=== PATIENT | male | born 1965 | race Caucasian/White ===

== ENCOUNTER 2017-04-23 19:58 | Inpatient (IN) | payer OTHER ==
[~2017-04-23] VITALS: Ht 172.7 cm; Wt 85.0 kg
[2017-04-23 20:12] VITALS: O2SAT 96; O2SAT 98
[2017-04-23 20:14] VITALS: BP 140/77; RESP 20
[2017-04-23] MEDS ORDERED: ceFAZolin 2 GM PREMIX 50 ML ONE (20:14)
[2017-04-23] MEDS ORDERED: ONDANSETRON HCL 4 MG/2 ML VIAL ONE (20:14)
[2017-04-23] MEDS ORDERED: DIPHTH/TETANUS/ACEL PERTUSSIS (BOOSTER) 0.5 ML VIAL/PFS IM ONE (20:14)
[2017-04-23] MEDS ORDERED: MORPHINE SULFATE 8 MG/ML INJ ONE (20:14)
[2017-04-23] MEDS ORDERED: HYDROmorphone HCL PF 2 MG/ML VIAL ONE (20:22)
[2017-04-23 20:32] LABS: I-STAT POTASSIUM 3.4 MMOL/L (3.5-4.9)
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
[2017-04-23 20:35] LABS: AUTOMATED NEUTROPHIL # 9.7 TH/MM3 (1.8-7.7); BASOPHIL # 0.1 TH/MM3 (0-0.2); BASOPHIL % 0.6 % (0.0-2.0); EOSINOPHIL # 0.2 TH/MM3 (0-0.4); EOSINOPHIL % 1.2 % (0.0-4.0); HEMATOCRIT 47.4 % (39.0-51.0); HEMO FLAGS DIFF FINAL; LYMPH % 24.4 % (9.0-44.0); LYMPHOCYTE # 3.7 TH/MM3 (1.0-4.8); MEAN CELL VOLUME 90.6 FL (80.0-100.0); MEAN CORPUSCULAR HGB CONC 33.1 % (32.0-36.0); MONO % 10.3 % (0.0-8.0); NEUT % 63.5 % (16.0-70.0); PLATELET COUNT 221 TH/MM3 (150-450); RED BLOOD COUNT 5.24 MIL/MM3 (4.50-5.90); RED CELL DISTRIBUTION WIDTH 13.9 % (11.6-17.2); WHITE BLOOD COUNT 15.2 TH/MM3 (4.0-11.0)
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
[2017-04-23] MEDS ORDERED: IOHEXOL 350 MG/ML 10 ML VIAL (for RAD DIAG) IVCONTRAST ONE (20:36)
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
[2017-04-23 20:44] LABS: APTT (PATIENT) 22.9 SEC (24.3-30.1); PROTHROMBIN TIME - PATIENT 11.2 SEC (9.8-11.6)
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
[2017-04-23 20:50] VITALS: BP 144/84; PULSE 112; RESP 18; O2SAT 96
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
[2017-04-23 22:15] VITALS: BP 145/81; PULSE 100; RESP 18; O2SAT 96
[2017-04-23] MEDS ORDERED: HYDROmorphone HCL PF 2 MG/ML VIAL IV PUSH ONE (22:45)
[2017-04-23 23:27] VITALS: BP 115/60
[2017-04-24] VITALS (7 sets, daily range): BP systolic 118–154; BP diastolic 72–85; PULSE 74–100; RESP 16–18; TEMP 97.7–99.7; O2SAT 92–97
[2017-04-24] MEDS ORDERED: ONDANSETRON HCL 4 MG/2 ML VIAL IV PUSH PRN (00:45)
[2017-04-24] MEDS: MORPHINE SULFATE 4 MG/ML INJ IV PRN ×5 (00:48→11:28)
[2017-04-24] MEDS: SODIUM CHLOR 0.9% 1000 ML INJ 1,000 ML IV SCH ×3 (01:00→20:26)
[2017-04-24] MEDS ORDERED: LACTATED RINGER'S 1000 ML IV PRN (05:00)
[2017-04-24] MEDS ORDERED: SODIUM CHLORID 0.9% 500 ML IV PRN (05:00)
[2017-04-24] MEDS ORDERED: POVIDONE IODINE 5% (ANTISEPSIS KIT) 4 APPLICATIONS EACH NARE PRN (05:00)
[2017-04-24] MEDS ORDERED: CHLORHEXIDINE GLUCONATE 2 % 1 PACK (2 CLOTHS) TOPICAL PRN (05:00)
[2017-04-24] MEDS ORDERED: INSULIN HUMAN REGULAR 1,000 UNITS/10 ML VIAL SQ PRN (05:00)
[2017-04-24] MEDS ORDERED: METOPROLOL TARTRATE 25 MG TAB PO PRN (05:00)
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
[2017-04-24] MEDS: DOCUSATE SODIUM 50 MG/SENNA 8.6 MG TAB PO SCH ×2 (09:00→20:32)
[2017-04-24] MEDS: FAMOTIDINE 20 MG TAB PO SCH ×2 (09:00→20:32)
[2017-04-24] MEDS ORDERED: ONDANSETRON HCL 4 MG/2 ML VIAL IV ONE (10:12)
[2017-04-24] MEDS ORDERED: MIDAZOLAM HCL 2 MG/2 ML VIAL IV ONE (10:12)
[2017-04-24] MEDS ORDERED: PROPOFOL 200 MG/20 ML AMP IV ONE (10:12)
[2017-04-24] MEDS ORDERED: NEOSTIGMINE 3 MG/3 ML SYR IV ONE (10:12)
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
[2017-04-24] MEDS ORDERED: DEXAMETHASONE SOD PHOS 4 MG/ML VIAL ONE (11:18)
[2017-04-24] MEDS ORDERED: FAMOTIDINE 20 MG/2 ML VIAL ONE (11:18)
[2017-04-24] MEDS ORDERED: VANCOMYCIN HCL 1000 MG VIAL ONE (11:38)
[2017-04-24] MEDS ORDERED: SODIUM CHLOR 0.9% 250 ML INJ 250 ML ONE (11:39)
[2017-04-24] MEDS ORDERED: GENTAMICIN SULFATE 80 MG/2 ML VIAL ONE (11:39)
[2017-04-24] MEDS ORDERED: ceFAZolin 2 GM PREMIX 50 ML ONE (11:39)
[2017-04-24] MEDS: BACITRACIN TOP OINT 15 GM TUBE TOPICAL SCH ×2 (11:45→20:32)
[2017-04-24] MEDS ORDERED: XARE10TA PO (11:54)
[2017-04-24] MEDS ORDERED: CALCTAB19 PO (11:54)
[2017-04-24] MEDS ORDERED: WALKER/ADULT/FO1 MIS (11:54)
[2017-04-24] MEDS ORDERED: HYDR-3583 PO (11:54)
[2017-04-24] MEDS ORDERED: diphenhydrAMINE HCL 25 MG CAP PO PRN (13:30)
[2017-04-24] MEDS ORDERED: MORPHINE SULFATE 4 MG/ML INJ IV PUSH PRN (13:30)
--- NOTE | 2017-04-24 13:36 | PD.OP ---
cc: Hai Skelton MD Operative Report Date of Surgery: Apr 24, 2017 Preoperative Diagnosis: Displaced right tibia shaft fracture nondisplaced second, third, and fourth metatarsal fractures Postoperative Diagnosis: Procedure: Reduction and intramedullary nail fixation right tibia Anesthesia: Gen. Surgeon: Hai Skelton Aquatic Scientist(s): YUNG Ley PA-C The surgical procedure was assisted by my physician health education assistant. My P.A. presence was necessary throughout this case for the manipulation and positioning of the surgical extremity. My P.A. was assisting me throughout the duration of this procedure. The skill set of a physician health education assistant was medically necessary to complete this procedure. During the surgical case the regional vice president surgical sales was working at the back table and the physician health education assistant was directly assisting me. Operation and Findings: Implants: synthes [10]mm x [345]mm tibial nail Plan of activity: Nonweightbearing Patient was seen and examined preoperatively. An informed consent was obtained from patient after detailed discussion of risk and benefits. Risks of surgery include bleeding, infection, painful hardware, nonunion, malunion, leg length discrepancy, need for hardware removal, and medical complications associated with anesthesia including blood clots, stroke, heart attack, and were discussed. Operative site was marked. Patient was brought to the operating room placed on or table. Patient received IV antibiotics and was given IV sedation GETA. Operative leg was prepped with alcohol Hibiclens and draped in usual sterile fashion. Timeout procedure was performed Procedure began with reduction of fracture. 2 small incisions were made around the fracture site. A percutaneous clamp was placed. Traction was applied. Fracture was reduced. There was comminution of the fracture. The fracture reduced and excellent alignment was achieved. Fracture clamp was used to aid in reduction. Next a 3 cm incision was made proximal to the patella. Quadriceps tendon was split in line with fibers. Cannulas were placed in the patellofemoral joint to protect the articular surface at all times. A guidepin was placed into the tibia and advanced in the tibial canal. Fluoroscopy was used to confirm appropriate guidepin placement. An opening reamer was used to open the tibial canal. A ball-tipped guidewire was advanced down the tibial canal. Guidepin was passed across the fracture site into the center of the distal tibia. Fluoroscopy confirmed guidepin placement. The nail length was now measured. Percutaneous incisions were now made around the distal segment. Steinmann pins were now placed from anterior to posterior to be used as a blocking pins to help hold reduction of fracture. The fracture was now held in a reduced position and the canal was reamed. The canal was reamed up to appropriate size. A Synthes 10 mm x 345 mm nail was now selected. Next the nail was fully seated. Using perfect [place] technique 3 distal interlocking screws were placed. 2 additional locking screws were placed beside the nail. The nail was now gently back slapped to apply compression. Using the insertion handle as a guide 2 proximal interlocking screws were placed. Fluoroscopy confirmed excellent of fracture with well-placed hardware. Incisions and the knee joint were thoroughly irrigated with sterile saline. Fascia was closed with #1 Vicryl, subcutaneous tissues closed with 3-0 Vicryl and skin was closed with quinten. Sterile dressings were applied. Patient was awakened and transferred to recovery in stable condition. Hai Skelton MD Apr 24, 2017 13:36
[2017-04-24] MEDS ORDERED: DO NOT ADM ANY ANTICOAGULANT DRUGS PRN (13:50)
[2017-04-24] MEDS ORDERED: *MEPERIDINE 25 MG INJ VIAL PERIprocedural Use ONLY ONE (13:53)
[2017-04-24] MEDS ORDERED: LACTATED RINGER'S 1000 ML INJ 1,000 ML IV SCH (14:00)
--- NOTE | 2017-04-24 14:09 | EKG ---
Date Performed: 04/23/2017 Time Performed: 20:57:00 PTAGE: 51 years EKG: SINUS TACHYCARDIA NONSPECIFIC T-WAVE ABNORMALITY ABNORMAL RHYTHM ECG NO PREVIOUS TRACING DOCTOR: Marsha Kam Interpretating Date/Time 04/24/2017 14:06:17
[2017-04-24] MEDS ORDERED: *LABETALOL HCL 100 MG/20 ML VIAL PERIprocedural Use ONLY ONE (14:17)
[2017-04-24] MEDS ORDERED: *morphine SULFATE 8 MG/ML PERIprocedure ONLY ONE (14:52)
[2017-04-24] MEDS ORDERED: ERGOCALCIFEROL (VIT D2) 50,000 UNIT CAP PO SCH (15:00)
--- NOTE | 2017-04-24 15:44 | RADRPT ---
EXAM DATE/TIME: 04/24/2017 12:40 [facility] COMPARISON: No previous studies available for comparison. INDICATIONS : Right tibia intramedullary salina. OR. MEDICAL HISTORY : None. SURGICAL HISTORY : None. ENCOUNTER: Initial ACUITY: 1 day PAIN SCORE: Non-responsive. LOCATION: Right tibia FINDINGS: Intramedullary salina is noted within the tibia status post ORIF. Multiple fractures are noted involving the fibula. CONCLUSION: 1. Intramedullary salina in good position within the tibia status post ORIF. 2. Multiple fractures involving the fibular shaft are mildly displaced. Sushant Avalos MD on April 24, 2017 at 15:25 Board Certified Radiologist. This report was verified electronically.
[2017-04-24] MEDS: ACETAMINOPHEN/HYDROcodone 325 MG/10 MG TAB PO PRN ×2 (16:36→20:32)
[2017-04-24] MEDS: CALCIUM/VITAMIN D 250 MG/125 U TAB PO SCH (16:36)
[2017-04-24] MEDS: ceFAZolin 2 GM PREMIX 50 ML IV SCH (20:27)
[2017-04-24] MEDS: MAGNESIUM HYDROXIDE SUSP 30 ML CUP PO SCH (20:31)
[2017-04-25] VITALS (8 sets, daily range): BP systolic 112–148; BP diastolic 59–86; PULSE 60–80; RESP 16–19; TEMP 96.9–98.3; O2SAT 92–98
[2017-04-25] MEDS: VANCOMYCIN INJ 1,000 MG in SODIUM CHLOR 0.9% 250 ML INJ 250 ML IV SCH ×2 (00:21→12:24)
[2017-04-25] MEDS: ACETAMINOPHEN/HYDROcodone 325 MG/10 MG TAB PO PRN ×6 (00:23→22:07)
[2017-04-25] MEDS: ENOXAPARIN SODIUM 40 MG/0.4 ML SYRINGE SQ SCH (01:49)
[2017-04-25] MEDS: SODIUM CHLOR 0.9% 1000 ML INJ 1,000 ML IV SCH (05:34)
[2017-04-25] MEDS: ceFAZolin 2 GM PREMIX 50 ML IV SCH ×2 (05:34→12:23)
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
--- NOTE | 2017-04-25 06:53 | PD.ORT.PN ---
Subjective Subjective Remarks Pain control with no new complaints Objective Vitals Vital Signs Date Time Temp Pulse Resp B/P (MAP) Pulse Ox O2 Delivery O2 Flow Rate FiO2 04/25/17 00:10 97.8 80 16 121/69 (86) 93 04/24/17 21:57 93 Nasal Cannula 3.00 04/24/17 20:40 99.7 100 17 134/72 (92) 93 04/24/17 15:00 99.6 79 16 128/77 (94) 93 04/24/17 14:55 79 14 144/87 (106) 94 Nasal Cannula 3 04/24/17 14:45 79 14 152/84 (106) 94 Nasal Cannula 3 04/24/17 14:30 80 14 161/100 (120) 98 Nasal Cannula 3 04/24/17 14:15 90 14 180/102 (128) 97 Nasal Cannula 3 04/24/17 13:55 97.3 109 14 185/84 (117) 94 Simple Mask 8 04/24/17 08:00 98.0 77 16 142/81 (101) 92 I/O 04/24/17 04/24/17 04/24/17 04/25/17 04/25/17 04/25/17 07:00 15:00 23:00 07:00 15:00 23:00 Intake Total 200 ml 1000 ml 530 ml 960 ml Output Total 450 ml 900 ml 450 ml Balance -250 ml 100 ml 80 ml 960 ml Intake Oral 200 ml 480 ml IV Total 50 ml 960 ml Other 1000 ml Output Urine Total 450 ml 800 ml 450 ml Estimated Blood Loss 100 ml # Bowel Movements 0 0 0 Result Diagram: 04/23/172013 Imaging Last 72 hours Impressions Pelvis X-Ray 04/23/172014 Signed Impressions: Service Date/Time: Sunday, April 23, 2017 20:04 - CONCLUSION: No acute disease. Sushant Avalos MD Head CT 04/23/172014 Signed Impressions: Service Date/Time: Sunday, April 23, 2017 20:24 - CONCLUSION: 1. No definite acute intracranial abnormality seen. 2. 2.4 cm of low density in the right posterior frontal opercular region without mass effect likely represent the sequela of prior insult 3. Mild right lateral frontal scalp soft tissue swelling. Kavon Foote MD Chest X-Ray 04/23/172014 Signed Impressions: Service Date/Time: Sunday, April 23, 2017 20:04 - CONCLUSION: Questionable left-sided rib fractures. Mehdi Jarvis MD Chest CT 04/23/172014 Signed Impressions: Service Date/Time: Sunday, April 23, 2017 20:31 - CONCLUSION: Negative trauma chest CT. Kavon Dior MD Cervical Spine CT 04/23/172014 Signed Impressions: Service Date/Time: Sunday, April 23, 2017 20:25 - CONCLUSION: Intact cervical spine. Mild degenerative changes at C6/C7. Kavon Dior MD Abdomen/Pelvis CT 04/23/172014 Signed Impressions: Service Date/Time: Sunday, April 23, 2017 20:31 - CONCLUSION: 1. Mild loss of height of the L1 vertebral body without a definite acute cortical break or trabecular disruption. Please correlate clinically. 2. No visceral organ injury or other acute abnormality within the abdomen or pelvis. Kavon Dior MD Tibia/Fibula X-Ray 04/23/17 Signed Impressions: Service Date/Time: Sunday, April 23, 2017 20:04 - CONCLUSION: Displaced distal tibia and fibular fractures. Mehdi Jarvis MD Ankle X-Ray 04/23/17 Signed Impressions: Service Date/Time: Sunday, April 23, 2017 20:04 - CONCLUSION: Distal tibia and fibular fractures. Kavon Foote MD Last 24 hours Impressions Pelvis X-Ray 04/23/172014 Signed Impressions: Service Date/Time: Sunday, April 23, 2017 20:04 - CONCLUSION: No acute disease. Sushant Avalos MD Head CT 04/23/172014 Signed Impressions: Service Date/Time: Sunday, April 23, 2017 20:24 - CONCLUSION: 1. No definite acute intracranial abnormality seen. 2. 2.4 cm of low density in the right posterior frontal opercular region without mass effect likely represent the sequela of prior insult 3. Mild right lateral frontal scalp soft tissue swelling. Kavon Foote MD Chest X-Ray 04/23/172014 Signed Impressions: Service Date/Time: Sunday, April 23, 2017 20:04 - CONCLUSION: Questionable left-sided rib fractures. Mehdi Jarvis MD Chest CT 04/23/172014 Signed Impressions: Service Date/Time: Sunday, April 23, 2017 20:31 - CONCLUSION: Negative trauma chest CT. Kavon Dior MD Cervical Spine CT 04/23/172014 Signed Impressions: Service Date/Time: Sunday, April 23, 2017 20:25 - CONCLUSION: Intact cervical spine. Mild degenerative changes at C6/C7. Kavon Dior MD Abdomen/Pelvis CT 04/23/172014 Signed Impressions: Service Date/Time: Sunday, April 23, 2017 20:31 - CONCLUSION: 1. Mild loss of height of the L1 vertebral body without a definite acute cortical break or trabecular disruption. Please correlate clinically. 2. No visceral organ injury or other acute abnormality within the abdomen or pelvis. Kavon Dior MD Objective Remarks Bilateral upper extremities: Full range of motion neurovascularly intact Left lower extremity: Full range of motion neurovascularly intact Right lower extremity: No pain with hip range of motion. Splint in place. Clean dry and intact. Intact sensation in toes with ecchymosis. Good capillary refills Assessment & Plan Assessment and Plan Right tibial shaft fracture status post IM nail POD 1 Right second, third and fourth proximal metatarsal fractures-minimally displaced with nonoperative treatment Maintain splint Nonweightbearing right lower extremity Maintain splint and keep it clean and dry Elevation May work on discharge planning when pain is controlled and safely getting around - possibly today Lovenox then convert to Xarelto after discharge If traveling back home he may need to keep his foot elevated at all times Follow-up with orthopedic at home in 2 weeks for repeat x-rays and removal of sutures and quinten Pain prescription on chart Mark Pendleton Jr. Apr 25, 2017 06:53
[2017-04-25] MEDS: CALCIUM/VITAMIN D 250 MG/125 U TAB PO SCH ×3 (08:49→18:50)
[2017-04-25] MEDS: ASCORBIC ACID 500 MG TAB PO SCH (08:49)
[2017-04-25] MEDS: CHOLECALCIFEROL (VIT D3) 1000 UNIT TAB PO SCH (08:49)
[2017-04-25] MEDS: DOCUSATE SODIUM 50 MG/SENNA 8.6 MG TAB PO SCH ×2 (08:49→22:07)
[2017-04-25] MEDS: FAMOTIDINE 20 MG TAB PO SCH ×2 (08:49→22:07)
[2017-04-25] MEDS: BACITRACIN TOP OINT 15 GM TUBE TOPICAL SCH ×2 (08:55→22:07)
[2017-04-25 09:47] LABS: AUTOMATED NEUTROPHIL # 10.2 TH/MM3 (1.8-7.7); BASOPHIL % 0.2 % (0.0-2.0); EOSINOPHIL % 0.1 % (0.0-4.0); HEMATOCRIT 37.9 % (39.0-51.0); LYMPH % 17.2 % (9.0-44.0); LYMPHOCYTE # 2.6 TH/MM3 (1.0-4.8); MEAN CELL VOLUME 91.8 FL (80.0-100.0); MEAN CORPUSCULAR HEMOGLOBIN 30.1 PG (27.0-34.0); MEAN CORPUSCULAR HGB CONC 32.8 % (32.0-36.0); MONO % 14.4 % (0.0-8.0); NEUT % 68.1 % (16.0-70.0); PLATELET COUNT 174 TH/MM3 (150-450); RED BLOOD COUNT 4.13 MIL/MM3 (4.50-5.90); RED CELL DISTRIBUTION WIDTH 13.9 % (11.6-17.2); WHITE BLOOD COUNT 14.9 TH/MM3 (4.0-11.0)
[2017-04-25 09:51] LABS: HEMO FLAGS AUTO DIFF
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
[2017-04-25] MEDS ORDERED: PNEUMOCOCCAL POLYVALENT INJ 25 MCG/0.5 ML SYR IM ONE (10:00)
[2017-04-25] MEDS ORDERED: INFLUENZA VIRUS VACCINE (QUADRIVALENT) 0.5 ML SYR IM ONE (10:00)
[2017-04-25 10:12] LABS: ANION GAP 5 MEQ/L (5-15); AST (GOT) 31 U/L (15-37); BICARBONATE 29.2 MEQ/L (21.0-32.0); BLOOD UREA NITROGEN 8 MG/DL (7-18); CHLORIDE 103 MEQ/L (98-107); GLOMERULAR FILTRATION RATE 122 ML/MIN (>89); POTASSIUM 3.9 MEQ/L (3.5-5.1); SODIUM (NA) 137 MEQ/L (136-145)
[2017-04-25 10:14] LABS: ALT (GPT) 20 U/L (12-78)
[2017-04-25 10:16] LABS: ALKALINE PHOSPHATASE 84 U/L (45-117); TOTAL BILIRUBIN ADULT 0.5 MG/DL (0.2-1.0)
[2017-04-25 10:47] LABS: BANDS 1 % (0-6); EOSINOPHILS 1 % (0-4); NEUTROPHIL # MANUAL DIFF 10.3 TH/MM3 (1.8-7.7); POLYS (SEG NEUTROPHILS) 68 % (16-70); WBC DIFF SAMPLE 100
[2017-04-25 10:48] LABS: PLATELET ESTIMATE SMEAR NORMAL (NORMAL); PLATELET MORPHOLOGY NORMAL (NORMAL); SCAN/DIFF FINAL DIFF MANUAL
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
[2017-04-25] MEDS ORDERED: ACETAMINOPHEN 1000 MG/100 ML VIAL IV ONE (11:30)
[2017-04-25] MEDS ORDERED: MAGN400S PO (14:37)
[2017-04-25] MEDS ORDERED: CRUTMIS25 (14:37)
[2017-04-25] MEDS ORDERED: BEDSIDE COMMODE1 MI1 (14:37)
[2017-04-25] MEDS ORDERED: SENN1TAB PO (14:37)
[2017-04-25] MEDS: MAGNESIUM HYDROXIDE SUSP 30 ML CUP PO SCH ×2 (21:00→22:06)
[2017-04-26] MEDS: ENOXAPARIN SODIUM 40 MG/0.4 ML SYRINGE SQ SCH (02:11)
[2017-04-26] MEDS: ACETAMINOPHEN/HYDROcodone 325 MG/10 MG TAB PO PRN ×4 (02:13→13:39)
--- NOTE | 2017-04-26 06:40 | PD.ORT.PN ---
Subjective Subjective Remarks POD 2 s/p IMN right tibia doing well. pain controlled. no changes. Objective Vitals Vital Signs Date Time Temp Pulse Resp B/P (MAP) Pulse Ox O2 Delivery O2 Flow Rate FiO2 04/25/17 23:29 98.1 78 18 121/67 (85) 96 04/25/17 21:05 96 Nasal Cannula 3.00 04/25/17 19:33 97.6 76 18 148/86 (106) 98 04/25/17 15:32 96.9 62 19 115/67 (83) 94 04/25/17 14:00 Nasal Cannula 3.00 04/25/17 11:23 97.8 60 19 129/72 (91) 93 04/25/17 07:47 97.4 64 19 116/68 (84) 92 I/O 04/25/17 04/25/17 04/25/17 04/26/17 04/26/17 04/26/17 07:00 15:00 23:00 07:00 15:00 23:00 Intake Total 1440 ml 650 ml 480 ml 480 ml Output Total 1200 ml Balance 240 ml 650 ml 480 ml 480 ml Intake Oral 480 ml 600 ml 480 ml 480 ml IV Total 960 ml 50 ml Output Urine Total 1200 ml # Voids 1 2 2 # Bowel Movements 0 0 0 Result Diagram: 04/25/17 0824 04/25/17 0824 Imaging Last 72 hours Impressions Pelvis X-Ray 04/23/172014 Signed Impressions: Service Date/Time: Sunday, April 23, 2017 20:04 - CONCLUSION: No acute disease. Sushant Avalos MD Head CT 04/23/172014 Signed Impressions: Service Date/Time: Sunday, April 23, 2017 20:24 - CONCLUSION: 1. No definite acute intracranial abnormality seen. 2. 2.4 cm of low density in the right posterior frontal opercular region without mass effect likely represent the sequela of prior insult 3. Mild right lateral frontal scalp soft tissue swelling. Kavon Foote MD Chest X-Ray 04/23/172014 Signed Impressions: Service Date/Time: Sunday, April 23, 2017 20:04 - CONCLUSION: Questionable left-sided rib fractures. Mehdi Jarvis MD Chest CT 04/23/172014 Signed Impressions: Service Date/Time: Sunday, April 23, 2017 20:31 - CONCLUSION: Negative trauma chest CT. Kavon Dior MD Cervical Spine CT 04/23/172014 Signed Impressions: Service Date/Time: Sunday, April 23, 2017 20:25 - CONCLUSION: Intact cervical spine. Mild degenerative changes at C6/C7. Kavon Dior MD Abdomen/Pelvis CT 04/23/172014 Signed Impressions: Service Date/Time: Sunday, April 23, 2017 20:31 - CONCLUSION: 1. Mild loss of height of the L1 vertebral body without a definite acute cortical break or trabecular disruption. Please correlate clinically. 2. No visceral organ injury or other acute abnormality within the abdomen or pelvis. Kavon Dior MD Tibia/Fibula X-Ray 04/23/17 Signed Impressions: Service Date/Time: Sunday, April 23, 2017 20:04 - CONCLUSION: Displaced distal tibia and fibular fractures. Mehdi Jarvis MD Ankle X-Ray 04/23/17 Signed Impressions: Service Date/Time: Sunday, April 23, 2017 20:04 - CONCLUSION: Distal tibia and fibular fractures. Kavon Foote MD Last 24 hours Impressions Pelvis X-Ray 04/23/172014 Signed Impressions: Service Date/Time: Sunday, April 23, 2017 20:04 - CONCLUSION: No acute disease. Sushant Avalos MD Head CT 04/23/172014 Signed Impressions: Service Date/Time: Sunday, April 23, 2017 20:24 - CONCLUSION: 1. No definite acute intracranial abnormality seen. 2. 2.4 cm of low density in the right posterior frontal opercular region without mass effect likely represent the sequela of prior insult 3. Mild right lateral frontal scalp soft tissue swelling. Kavon Foote MD Chest X-Ray 04/23/172014 Signed Impressions: Service Date/Time: Sunday, April 23, 2017 20:04 - CONCLUSION: Questionable left-sided rib fractures. Mehdi Jarvis MD Chest CT 04/23/172014 Signed Impressions: Service Date/Time: Sunday, April 23, 2017 20:31 - CONCLUSION: Negative trauma chest CT. Kavon Dior MD Cervical Spine CT 04/23/172014 Signed Impressions: Service Date/Time: Sunday, April 23, 2017 20:25 - CONCLUSION: Intact cervical spine. Mild degenerative changes at C6/C7. Kavon Dior MD Abdomen/Pelvis CT 04/23/172014 Signed Impressions: Service Date/Time: Sunday, April 23, 2017 20:31 - CONCLUSION: 1. Mild loss of height of the L1 vertebral body without a definite acute cortical break or trabecular disruption. Please correlate clinically. 2. No visceral organ injury or other acute abnormality within the abdomen or pelvis. Kavon Dior MD Objective Remarks Right lower extremity: No pain with hip range of motion. Splint in place. Clean dry and intact. Intact sensation in toes with ecchymosis. Good capillary refills Assessment & Plan Assessment and Plan 1) Right tibial shaft fracture status post IM nail POD 2 2) Right second, third and fourth proximal metatarsal fractures-minimally displaced with nonoperative treatment Maintain splint Nonweightbearing right lower extremity Maintain splint and keep it clean and dry Elevation May work on discharge planning when pain is controlled and safely getting around - possibly today. case management to arrange. Lovenox then convert to Xarelto after discharge If traveling back home he may need to keep his foot elevated at all times Follow-up with orthopedic at home in 2 weeks for repeat x-rays and removal of sutures and quinten Pain prescription on chart Ortho clear for Discharge Milton Carrera Apr 26, 2017 06:39
[2017-04-26 07:58] VITALS: BP 143/88; PULSE 74; RESP 19; TEMP 97; O2SAT 95
[2017-04-26] MEDS: DOCUSATE SODIUM 50 MG/SENNA 8.6 MG TAB PO SCH (09:00)
[2017-04-26] MEDS ORDERED: LACTULOSE SYRUP 20 GM/30 ML CUP PO SCH (09:00)
[2017-04-26] MEDS: FAMOTIDINE 20 MG TAB PO SCH (10:36)
[2017-04-26] MEDS: CHOLECALCIFEROL (VIT D3) 1000 UNIT TAB PO SCH (10:36)
[2017-04-26] MEDS: ASCORBIC ACID 500 MG TAB PO SCH (10:36)
[2017-04-26] MEDS: CALCIUM/VITAMIN D 250 MG/125 U TAB PO SCH ×2 (10:36→13:31)
[2017-04-26] MEDS: BACITRACIN TOP OINT 15 GM TUBE TOPICAL SCH (10:37)
[2017-04-26 11:12] VITALS: O2SAT 95
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
[2017-04-26 11:47] VITALS: BP 143/80; PULSE 62; RESP 19; TEMP 98.4; O2SAT 94
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
== END 2017-04-26 14:19 | disposition home or self-care (01) | DRG 493 ==
LOC: NEPC 19:58 → NEDA 21:14 → NEPHCDU 23:54 → N06A 04-24 04:10
PROVIDERS: ADMIT Surgery; ATTEND Surgery
PROC: 0QSG06Z Reposition Right Tibia with Intramedullary Internal Fixation Device, Open Approach (ICD-10-PCS; principal; 2017-04-24 11:58)
DX: S82.291A Other fracture of shaft of right tibia, initial encounter for closed fracture (principal); S06.0X9A Concussion with loss of consciousness of unspecified duration, initial encounter; S82.491A Other fracture of shaft of right fibula, initial encounter for closed fracture; S92.323A Displaced fracture of second metatarsal bone, unspecified foot, initial encounter for closed fracture; S92.333A Displaced fracture of third metatarsal bone, unspecified foot, initial encounter for closed fracture; S92.343A Displaced fracture of fourth metatarsal bone, unspecified foot, initial encounter for closed fracture; V03.10XA Pedestrian on foot injured in collision with car, pick-up truck or van in traffic accident, initial encounter; Y93.9 Activity, unspecified; Y92.410 Unspecified street and highway as the place of occurrence of the external cause; Y99.0 Civilian activity done for income or pay; F17.210 Nicotine dependence, cigarettes, uncomplicated
CPT/HCPCS: 70450; 71010; 71260; 72125; 72170; 73590; 73600; 73610; 74177; 76000; 80053; 82435; 82565; 82947; 84132; 84295; 84520; 85007; 85025; 85027; 85610; 85730; 86850; 86900; 86901; 90471; 90715; 93005; 94150; 96374; 96375; 99291; C1713; C1769; G0390; J0131; J0690; J1100; J1170; J1580; J1650; J2175; J2250; J2270; J2405; J2710; J3010; J3370; J7030; J7050; Q9967